=== PATIENT | female | born 1960 | race Asian ===

== ENCOUNTER 2017-09-11 07:54 | Day surgery (SDC) | payer OTHER ==
[2017-09-11] MEDS ORDERED: fentaNYL 100 MCG/2 ML VIAL IVP ONE (07:55)
[2017-09-11] MEDS ORDERED: MIDAZOLAM 2 MG/2 ML VIAL IVP ONE (07:55)
[2017-09-11] MEDS ORDERED: LACTATED RINGERS 1,000 ML IV ONE (08:30)
[2017-09-11 10:24] VITALS: BP 108/65
== END 2017-09-11 07:55 | disposition home or self-care (01) ==
LOC: SDS 07:54
PROVIDERS: ATTEND Surgery
PROC: 0DBP8ZX Excision of Rectum, Via Natural or Artificial Opening Endoscopic, Diagnostic (ICD-10-PCS; principal; 2017-09-11 09:15)
DX: Z12.11 Encounter for screening for malignant neoplasm of colon (principal); K57.30 Diverticulosis of large intestine without perforation or abscess without bleeding; K64.8 Other hemorrhoids; K62.1 Rectal polyp; I10 Essential (primary) hypertension; E78.00 Pure hypercholesterolemia, unspecified; J45.909 Unspecified asthma, uncomplicated
CPT/HCPCS: 45380; J7120; 88305

== ENCOUNTER 2017-11-09 19:42 | Observation (INO) | payer OTHER ==
[2017-11-09] MEDS ORDERED: MORPHINE 10 MG/ML VIAL IVP STA ×2 (20:04→22:02)
[2017-11-09] MEDS ORDERED: ONDANSETRON 4 MG/2 ML VIAL IVP STA (20:04)
--- NOTE | 2017-11-09 20:07 | ED Physician Documentation ---
PD HPI ABD PAIN - Stated complaint Stated Complaint: ABD PX - Chief complaint Chief Complaint: Abd Pain - History obtained from History obtained from: Patient - History of Present Illness Timing - onset: Other (She has a history of gallstones, they were ignored for the most part. She also had a negative colonoscopy except for diverticulosis and a single polyp just 2 months ago. She developed sudden onset epigastric pain about 5 hours ago at 2:00 after eating a late lunch. She is no history of abdominal surgeries.) Review of Systems Constitutional: denies: Fever, Chills Nose: reports: Reviewed and negative Cardiac: reports: Reviewed and negative Respiratory: reports: Reviewed and negative GI: reports: Abdominal Pain, Nausea. denies: Vomiting, Constipation, Diarrhea PD PAST MEDICAL HISTORY - Past Medical History Past Medical History: Yes Cardiovascular: Hypertension, High cholesterol Respiratory: Asthma Endocrine/Autoimmune: HyPOthyroidism GI: GERD : None HEENT: None Psych: None Derm: None - Past Surgical History Past Surgical History: Yes General: Colonoscopy - Present Medications Home Medications: Ambulatory Orders Medication Instructions Recorded Confirmed Albuterol Sulfate [Proair Hfa 1 - 2 puffs INH Q4H PRN 09/11/17 09/11/17 Inhaler] Carvedilol 6.25 mg PO 09/11/17 Levothyroxine Sodium [Synthroid] 25 mcg PO 09/11/17 amLODIPine [Norvasc] 10 mg PO DAILY 09/11/17 09/11/17 Atorvastatin [Lipitor] 10 mg PO DAILY 11/09/17 11/09/17 metFORMIN [Glucophage] 500 mg PO DAILY 11/09/17 11/09/17 - Allergies Allergies/Adverse Reactions: Allergies Allergy/AdvReac Type Severity Reaction Status Date / Time No Known Drug Allergies Allergy Verified 11/09/17 19:53 - Social History Does the pt smoke?: No Smoking Status: Never smoker Does the pt drink ETOH?: No Does the pt have substance abuse?: No - Family History Family history: reports: Non contributory - Immunizations Immunizations are current?: No Immunizations: TDAP >10years/unknown - POLST Patient has POLST: No PD ED PE NORMAL - Vitals Vital signs reviewed: Yes - General General: Alert and oriented X 3, No acute distress - HEENT HEENT: PERRL, EOMI - Neck Neck: Supple, no meningeal sign, No bony TTP - Cardiac Cardiac: RRR, No murmur - Respiratory Respiratory: No respiratory distress, Clear bilaterally - Abdomen Abdomen: Other (TTP RUQ with equivocal murphys) - Back Back: No CVA TTP, No spinal TTP - Derm Derm: Normal color, Warm and dry - Extremities Extremities: Other (trace pitting edema) - Neuro Neuro: Alert and oriented X 3, Normal speech Results - Vitals Vitals: Vital Signs - 24 hr 11/09/17 11/09/17 11/09/17 19:48 20:22 20:51 Temperature 36.3 C L Heart Rate 110 H 97 87 Respiratory 16 12 15 Rate Blood Pressure 142/83 H 152/92 H 143/89 H O2 Saturation 99 99 100 11/09/17 21:22 Temperature Heart Rate 104 H Respiratory 13 Rate Blood Pressure 136/77 H O2 Saturation 97 Oxygen O2 Source Room air - EKG (time done) 2008 Rate: Rate (enter#) (101) Rhythm: Sinus tachycardia [place]: Normal Intervals: Normal [place] QRS: Normal Ischemia: Normal ST segments Computer interpretation: Agree with computer - Labs Labs: Laboratory Tests 11/09/17 11/09/17 11/09/17 20:13 20:13 20:13 WBC 12.1 H RBC 6.20 H Hgb 12.2 Hct 39.6 MCV 64.0 L MCH 19.7 L MCHC 30.7 L RDW 15.7 H Plt Count 379 MPV 7.3 L Neut # (Auto) 9.4 H Lymph # (Auto) 2.2 [place] # (Auto) 0.4 Eos # (Auto) 0.0 Baso # (Auto) 0.1 Absolute Nucleated RBC 0.00 Nucleated RBC % 0.0 Manual Slide Review Indicated WBC Morphology NORMAL APPEARANCE Platelet Estimate NORMAL (130-450,000) Platelet Morphology NORMAL APPEARANCE RBC Morph Micro Appear 3+ MICROCYTOSIS Sodium 136 Potassium 3.6 Chloride 103 Carbon Dioxide 27 Anion Gap 6.0 BUN 10 Creatinine 0.6 Estimated GFR (MDRD) 103 Glucose 134 H Calcium 9.1 Total Bilirubin 0.5 AST 28 ALT 23 Alkaline Phosphatase 69 Troponin I < 0.04 Total Protein 8.4 H Albumin 4.3 Globulin 4.1 Albumin/Globulin Ratio 1.0 Lipase 25 - Rads (name of study) Abd Sono Radiology: EMP read contemporaneously (Large nonmobile gallstone in the gallbladder neck with positive sonographic Gould sign mild wall thickening, possible cholecystitis. Mild extrahepatic biliary ductal dilatation with the CBD of 13 mm.) PD MEDICAL DECISION MAKING - ED course ED course: 57-year-old woman with epigastric pain consistent with a biliary origin on history and physical, confirmed with ultrasound showing large stone in the neck. There is no biochemical evidence of cholestasis. I initially spoke with the on-call surgeon around 9:00 who wanted me to call him back around 10 if she was still in pain, which she was, although mild. She was still mildly tender at the time. Dr. Oren Shahid will admit her for further evaluation and treatment, likely cholecystectomy. - Sepsis Event Vital Signs: Vital Signs - 24 hr 11/09/17 11/09/17 11/09/17 19:48 20:22 20:51 Temperature 36.3 C L Heart Rate 110 H 97 87 Respiratory 16 12 15 Rate Blood Pressure 142/83 H 152/92 H 143/89 H O2 Saturation 99 99 100 11/09/17 21:22 Temperature Heart Rate 104 H Respiratory 13 Rate Blood Pressure 136/77 H O2 Saturation 97 Oxygen O2 Source Room air Departure - Departure Disposition: ED Place in Observation Clinical Impression: Cholecystitis Condition: Stable
[2017-11-09 20:20] LABS: BASOPHILS # (AUTO) 0.1 10^3/uL (0.0-0.1); BASOPHILS % (AUTO) 0.6 %; EOSINOPHILS % (AUTO) 0.3 %; HGB - HEMOGLOBIN 12.2 g/dL (12.0-16.0); LYMPHOCYTES # (AUTO) 2.2 10^3/uL (1.5-3.5); MEAN CORPUSCULAR HEMOGLOBIN 19.7 pg (27.0-31.0); MEAN CORPUSCULAR HGB CONC 30.7 g/dL (32.0-36.0); MEAN PLATELET VOLUME 7.3 fL (7.9-10.8); MONOCYTES # (AUTO) 0.4 10^3/uL (0.0-1.0); MONOCYTES % (AUTO) 3.4 %; NEUTROPHILS # (AUTO) 9.4 10^3/uL (1.5-6.6); NEUTROPHILS % (AUTO) 77.7 %; PLT - PLATELET COUNT 379 10^3/uL (130-450); RED CELL DISTRIBUTION WIDTH 15.7 % (12.0-15.0); WHITE BLOOD COUNT 12.1 x10^3/uL (4.8-10.8)
[2017-11-09 20:30] LABS: ALBUMIN 4.3 g/dL (3.2-5.5); BILIRUBIN,TOTAL 0.5 mg/dL (0.2-1.0); CALCIUM 9.1 mg/dL (8.5-10.3); CREATININE 0.6 mg/dL (0.4-1.0); TOTAL PROTEIN 8.4 g/dL (6.7-8.2)
[2017-11-09 20:42] LABS: PLATELET ESTIMATE, MANUAL NORMAL (130-450,000) (NORMAL); PLATELET MORPHOLOGY NORMAL APPEARANCE (NORMAL)
--- NOTE | 2017-11-09 21:41 | Ultrasound Report ---
Procedure Date: 11/09/2017 Accession Number: [id number] / [id number] Procedure: US - Abdomen Limited CPT Code: FULL RESULT: EXAM: ABDOMEN ULTRASOUND LIMITED, RUQ EXAM DATE: 11/09/2017 09:08 PM. CLINICAL HISTORY: RUQ TTP, pain. COMPARISON: None. TECHNIQUE: Real-time scanning was performed with static images obtained. FINDINGS: Liver: Normal in size and echotexture. 13.8 cm. Main portal vein flow: Hepatopetal. Gallbladder: Echogenic structure with posterior acoustic shadowing in the gallbladder neck consistent with gallstone, measuring 1.8 cm, nonmobile. Distended gallbladder. Mild gallbladder wall thickening along the hepatic surface. Positive sonographic Gould's sign. Biliary System: CBD measures 13 mm. Mild extrahepatic biliary ductal dilatation Other: None. IMPRESSION: 1. Large nonmobile gallstone in the gallbladder neck with distended gallbladder, positive sonographic Gould's sign and mild wall thickening. Acute cholecystitis possible. 2. Mild extrahepatic biliary ductal dilatation. Consider MRI pancreas/MRCP to evaluate RADIA
[2017-11-09] MEDS ORDERED: SODIUM CHLORIDE FLUSH 0.9% 10 ML SYRINGE IVP PRN (22:04)
[2017-11-09] MEDS ORDERED: HYDROmorphone 2 MG/ML VIAL IVP PRN ×2 (22:10→22:11)
[2017-11-09] MEDS: SODIUM CHLORIDE 0.9% 1,000 ML IV SCH (22:49)
[2017-11-09] MEDS: PANTOPRAZOLE 40 MG VIAL IVP SCH (22:49)
[2017-11-09] MEDS: cefOXitin 1 GM in SODIUM CHLORIDE 0.9% MINIBAG 100 ML IV SCH (23:04)
--- NOTE | 2017-11-10 00:47 | CONSULTATION NOTE ---
DATE OF SERVICE: 11/09/2017 DATE OF ADMISSION: 11/09/2017 [employer] PHYSICIAN: Sagrario Schwab MD REFERRING PHYSICIAN: Dr. Oren Shahid, General Surgery. REASON FOR REFERRAL: Management of medical problems in a patient about to have a cholecystectomy. HISTORY OF PRESENT ILLNESS: The patient is a 57-year-old Afghan female who has diabetes, hypertension, and asthma. She states that she had an attack of right upper quadrant pain in April 2017. It lasted most of the day, but as it went into the evening it went away, and she never mentioned it to her physician. Yesterday at noon, she had the same right upper quadrant pain she had last April. As the day went on, the pain continued to wax and wane in a colicky fashion. Occasionally radiated to the epigastrium or the right flank. It was very severely cramping and associated with nausea. As the day went on, the color of her stool changed. It went from dark stool to the color of "yellow baby poop." She denied having a fever but felt flushed all day long. She did not have emesis. No diarrhea. She finally came to the emergency room, where she was seen by Dr. Solomon. Dr. Solomon evaluated her and found her to have gallstones. He contacted Dr. Oren Shahid, General Surgery, who has agreed to place the patient in observation and plans on operating on her. Dr. Shahid has asked me to manage her medical problems. Diabetes was diagnosed 2 weeks ago. Her sugars have been gradually climbing, and she was put on metformin. She was told that she is not quite "diabetic yet" and that she is heading in that direction. Her blood pressure has been controlled as far as she knows, but she has been developing more and more subtle dyspnea on exertion. She has occasional edema and orthopnea. Yesterday, her legs were so swollen they looked like ripe tomatoes "getting ready to burst." The edema is not present today. She denies any history of arrhythmia, valvular heart disease, OK. She denies any chest pain. Her cardiovascular endurance is the same as it has always been. She has no renal disease. She does have a problem with asthma. It started about 4 years ago, and she uses an inhaler. She has never had to be intubated. Her inhaler is taken infrequently, at most 2 times a month. There has been no destabilization with regard to coughing, wheezing, or phlegm production. The other review of systems that was positive was that of intermittent left arm and left leg weakness. This started a few weeks ago. Initially, it was just her left arm that would feel numb from shoulder to wrist. Her left arm would feel heavy and sometimes weak. Then it would go away. Lately, she has felt like her left leg is numb, especially her foot, and it is heavy, and she feels that she is dragging it sometimes. Associated with this a visual cut defect. She feels like it is only coming out of her right eye. Half of her vision will be gone in the lateral visual field. Again, that comes and goes. It is accompanied by fleeting headaches. They are unilateral on the right side of her head. PAST MEDICAL HISTORY 1. Hypertension. 2. Hyperlipidemia. 3. Asthma and shortness of breath for 4 years. 4. Acid reflux with indigestion. 5. Hypothyroidism. 6. Dentures. 7. Type 2 diabetes mellitus, controlled, without complications, not on insulin for 2 weeks. 8. G7, P7. ALLERGIES: NO KNOWN DRUG ALLERGIES. MEDICATIONS 1. ProAir HFA inhaler 2 puffs as needed. 2. Amlodipine 10 mg daily. 3. Atorvastatin 40 mg daily. 4. Carvedilol 6.25 mg daily. 5. Synthroid 25 mcg daily. 6. Metformin 500 mg p.o. b.i.d. a.c. with meals. SOCIAL HISTORY: She never smoked. Rarely drank. She was born in the [facility] and came to [facility] in [place] to come live with one of her uncles. She is a [place] citizen. She met her and him in 1983. He is active duty , and they have lived in [place], [facility], and the [facility]. They have been on [facility] for about 18 years. She is occupied mainly as a [id number] with 7 children and is now the proud grandmother of several grandchildren, whom she takes care of. She is a very busy lady. She is still able to take care of the household, cleaning, taking care of the grandkids , and all of her activities of daily living. FAMILY HISTORY: Father had asthma and heart disease. Mom was healthy. One sister has thyroid. Her children are healthy. REVIEW OF SYSTEMS GENERAL: She has no recent changes with weight gain or loss, hot flashes, or general constitutional changes. ENT: She wears glasses for vision but denies glaucoma or cataracts. She has dentures. She denies hearing deficit, facial dysesthesia, problems swallowing. PULMONARY: Intermittent asthma attacks. No recent exacerbation. Denies coughing, phlegm production, wheezing. No hemoptysis. CARDIAC: Dyspnea on exertion is slightly worse over the last few years. Edema is noted in her above review of systems. Denies palpitations, arrhythmia, congestive heart failure, valvular heart disease. GASTROINTESTINAL: Positive for dyspepsia, and above in history of present illness. GENITOURINARY: Recent increased urinary frequency. Several times a day now. Urine is clear. No hematuria. No flank pain. Denies dysuria but does have urgency. No vaginal discharge. No dyspareunia. No postmenopausal vaginal bleeding. JOINTS: Both of her knees get very stiff, but it has not limited her yet. No joint swelling or effusions. Denies back pain, muscle pain. HEMATOLOGIC: Denies anemia, bleeding or bruising. PSYCHIATRIC: Denies depression or anxiety. ENDOCRINOLOGIC: Denies sweating, cold or heat intolerance. Does have polyuria , no polydipsia. CENTRAL NERVOUS SYSTEM: Positive as above for the headaches, intermittent left body weakness, right visual field deficits. Denies seizures or syncope. PHYSICAL EXAMINATION VITAL SIGNS: Temperature is 37, heart rate 99, blood pressure 128/81, respirations 18. She is 100% on room air. She is 5 feet 2 inches tall and weighs 57 kg. GENERAL: She is a slender Afghan female in no acute distress with at the bedside. HEAD AND NECK: Unremarkable other than dentures and glasses. Sclerae are nonicteric. Pupils reactive. No facial asymmetry. Speech is normal. Tongue is midline. Gag is intact. NECK: Supple without goiters or bruits. LUNGS: Clear to auscultation and percussion, and she does not have any crackles , rhonchi or wheezing at this time. No increased respiratory effort. She does not have a right ventricular lift palpable. CARDIAC: Regular rate and rhythm with a PMI normally placed and a systolic murmur at the left lower sternal border. ABDOMEN: Right upper quadrant pain but no rebound or guarding. Abdomen feels mildly distended, but hypoactive bowel sounds are present. EXTREMITIES: The extremities, in spite of her complaints of severe edema yesterday, are normal. She has no clubbing, cyanosis or edema. Good foot pulses. Knees are without effusions. They do have crepitance as I flex and extend but no effusions, no knee cap ballottement. NEUROLOGIC: She is alert and oriented to person, place and time. Cranial nerves II-XII appear grossly intact. I do not see a facial droop. She is hearing well. Tongue is midline. Pupils reactive. Strength testing of the upper and lower extremities, in spite of her complaints of intermittent left body numbness, is normal. Right and left hand grasp is normal , and elevation of her legs off the bed and pushing against my hands are normal. She is at 5/ 5. Reflexes are normal. LABORATORY DATA: Her BMP shows a normal BMP other than a glucose of 134. Troponin was less than 0.04. Total protein mildly elevated at 8.4. Bili and liver enzymes are normal. CBC has a white cell count of 12.1, hemoglobin 12.2, hematocrit 39.6, MCV of 64. She has anisocytosis and microcytosis. IMAGING: Abdominal ultrasound has a large nonmobile gallstone in the gallbladder neck with distended gallbladder, positive sonographic Gould sign, and a mild wall thickening. Acute cholecystitis possible. Mild extrahepatic biliary ductal dilatation. Consider MRI pancreas, MRCP to evaluate. ASSESSMENT/PLAN 1. Acute cholecystitis presenting as right upper quadrant abdominal pain. She has an elevated white cell count and a positive gallbladder ultrasound. Liver enzymes are not elevated, and there is no evidence of pancreatitis. Plan: She has been placed in observation. Dr. Shahid is the attending of record, and I am the wig sales consultant. ATTESTATION that the patient will be in the hospital less than 96 hours. Plan is for surgery in the morning. She is n.p.o. tonight. Pain management with morphine. Dr Shahid is managing her surgical disease and its treatment. Including choice of antibiotics. 2. Preoperative cardiovascular examination has a revised cardiac index of class I. Low risk for cardiac complications. 3. Dyspnea on exertion and complains of intermittent pedal edema. Check echocardiogram. There is murmur on exam. Point of maximal impulse is normally placed. While on physical examination I do not find congestive heart failure, nor evidence of pulmonary hypertension, would want to see if she has left ventricular hypertrophy. 4. Intermittent neurological deficit, left body, with right visual field cut loss. In spite of this complaint, her physical exam is quite normal. If possible, check MRI with and without contrast in the morning before after surgery and before discharge. 5. Microcytosis. In this Afghan female, I would suspect thalassemia. 6. Deep venous thrombosis prophylaxis will be thromboembolism deterrent hose. 7. FULL CODE STATUS. 8. History of asthma. Currently, her exam is negative for any exacerbation. Continue with albuterol p.r.n. 9. Type 2 diabetes mellitus, controlled, not on insulin. No complications. Sliding scale insulin with Novolin R already ordered. Hold metformin until after surgery. Check A1c. TD: 11/09/2017 23:46 MTDD
[2017-11-10] MEDS: INSULIN REGULAR HUMAN 100 UNIT/1 ML 10 ML MDV SUBQ SCH ×4 (03:08→18:10)
[2017-11-10] MEDS: SODIUM CHLORIDE FLUSH 0.9% 10 ML SYRINGE IVP SCH ×3 (03:09→17:37)
[2017-11-10] MEDS: cefOXitin 1 GM in SODIUM CHLORIDE 0.9% MINIBAG 100 ML IV SCH ×4 (05:34→22:03)
[2017-11-10 06:06] LABS: ALBUMIN 3.7 g/dL (3.2-5.5); ALBUMIN/GLOBULIN RATIO 1.2 (1.0-2.2); BILIRUBIN,TOTAL 0.5 mg/dL (0.2-1.0); CALCIUM 8.4 mg/dL (8.5-10.3); CREATININE 0.7 mg/dL (0.4-1.0); TOTAL PROTEIN 6.8 g/dL (6.7-8.2)
[2017-11-10 06:26] LABS: BASOPHILS % (AUTO) 0.5 %; EOSINOPHILS # (AUTO) 0.1 10^3/uL (0.0-0.7); HGB - HEMOGLOBIN 10.9 g/dL (12.0-16.0); MEAN CORPUSCULAR HEMOGLOBIN 19.9 pg (27.0-31.0); MEAN CORPUSCULAR VOLUME 64.1 fL (81.0-99.0); MEAN PLATELET VOLUME 7.7 fL (7.9-10.8); MONOCYTES # (AUTO) 0.6 10^3/uL (0.0-1.0); MONOCYTES % (AUTO) 6.3 %; NEUTROPHILS # (AUTO) 6.4 10^3/uL (1.5-6.6); NEUTROPHILS % (AUTO) 63.2 %; PLT - PLATELET COUNT 316 10^3/uL (130-450); RED BLOOD COUNT 5.49 10^6/uL (4.20-5.40); RED CELL DISTRIBUTION WIDTH 15.8 % (12.0-15.0); WHITE BLOOD COUNT 10.2 x10^3/uL (4.8-10.8)
[2017-11-10 07:20] LABS: PLATELET ESTIMATE, MANUAL NORMAL (130-450,000) (NORMAL)
[2017-11-10] MEDS: SODIUM CHLORIDE 0.9% 1,000 ML IV SCH ×3 (07:44→19:11)
[2017-11-10] MEDS: PANTOPRAZOLE 40 MG VIAL IVP SCH (09:27)
[2017-11-10 09:55] LABS: % IRON SATURATION 16 % (20-50); IRON 44 ug/dL (28-170); TOTAL IRON BINDING CAPACITY 269 ug/dL (250-450); TRANSFERRIN 192 mg/dL (192-382)
[2017-11-10] MEDS ORDERED: BUPIVACAINE 0.5%-EPI 1:200000 PF 30 ML VIAL ONE (13:19)
[2017-11-10] MEDS ORDERED: IOTHALAMATE MEGLUMINE 50 ML VIAL ONE (13:19)
--- NOTE | 2017-11-10 13:24 | Ultrasound Report ---
Procedure Date: 11/10/2017 Accession Number: [id number] / [id number] Procedure: US - Carotid Doppler Complete CPT Code: FULL RESULT: EXAM: BILATERAL CAROTID AND VERTEBRAL ARTERY DUPLEX DOPPLER ULTRASOUND: EXAM DATE: 11/10/2017 01:01 PM CLINICAL HISTORY: Intermittent left body weakness numbness. COMPARISON: None. TECHNIQUE: Grayscale imaging, color Doppler, and duplex spectral Doppler were used to evaluate the carotid and vertebral arteries bilaterally. Static images were obtained. FINDINGS: No significant shadowing plaque visualized. Grayscale images show no evidence of focal significant luminal narrowing. Left distal internal carotid artery not seen. Normal antegrade flow is present in bilateral vertebral arteries. VELOCITIES: Right CCA prox: PSV 71 cm/sec CCA dist: PSV 69 cm/sec, EDV 27 cm/sec ECA: PSV 85, cm/sec BULB: 60 PSV cm/sec, EDV 19 cm/sec, ICA/CCA PSV 0.86 ICA prox: PSV 47 cm/sec, EDV 16 cm/sec, ICA/CCA PSV 0.68 ICA mid: PSV 82 cm/sec, EDV 34 cm/sec, ICA/CCA PSV 1.18 ICA dist: PSV 91 cm/sec, EDV 45 cm/sec,ICA/CCA PSV 1.3 RVA: 69 RVA flow direction antegrade Left CCA prox: PSV 90 cm/sec CCA dist: PSV 75 cm/sec, EDV 34 cm/sec ECA: PSV 133, cm/sec BULB: PSV 71 cm/sec, EDV 31 cm/sec, ICA/CCA PSV 0.94 ICA prox: PSV 69 cm/sec, EDV 29 cm/sec, ICA/CCA PSV 0.92 ICA mid: PSV 91 cm/sec, EDV 35 cm/sec, ICA/CCA PSV 1.12 ICA dist: Not seen. LVA: 45 LVA flow direction antegrade ICA diameter stenosis: Right: <50% by velocity and <70% by NASCET criteria. Left: <50% by velocity and <70% by NASCET criteria. IMPRESSION: 1. No significant bilateral carotid artery plaquing. 2. In the right carotid artery there are no elevated carotid artery velocities to suggest hemodynamically significant stenosis. 3. In the left carotid artery there are no elevated carotid artery velocities to suggest hemodynamically significant stenosis. 4. Normal antegrade flow is present in bilateral vertebral arteries. General Recommendations: Stenosis =50% ICA - Follow-up ultrasound 6-12 months Stenosis <50% ICA - High Risk Patient with plaque - Follow-up ultrasound 1-2 years Normal Study but High Risk Patient - Follow-up ultrasound 3-5 years Management recommendations and diagnostic criteria are based on current IAC endorsed standards in Carotid Artery Stenosis: Grayscale and Doppler Ultrasound Diagnosis. Validated velocity measurements with angiographic measurements and velocity criteria are extrapolated from diameter data as defined by the Society of Radiologists in Ultrasound Consensus Conference Radiology 2003; 229;340-346. RADIA
[2017-11-10] MEDS ORDERED: IOTHALAMATE MEGLUMINE 50 ML VIAL IVP ONE ×2 (14:20)
[2017-11-10] MEDS ORDERED: BUPIVACAINE 0.5%-EPI 1:200000 PF 30 ML VIAL SUBQ ONE (14:21)
[2017-11-10] MEDS ORDERED: LACTATED RINGERS 1,000 ML IV ONE ×3 (15:15→15:36)
[2017-11-10] MEDS ORDERED: MIDAZOLAM 2 MG/2 ML VIAL IVP ONE (15:50)
[2017-11-10] MEDS ORDERED: DEXAMETHASONE 4 MG/ML VIAL IVP ONE (15:50)
[2017-11-10] MEDS ORDERED: OXYTOCIN 10 UNIT/ML VIAL IV ONE (15:50)
[2017-11-10] MEDS ORDERED: GLYCOPYRROLATE 1 MG/5 ML VIAL IVP ONE (15:50)
[2017-11-10] MEDS ORDERED: NEOSTIGMINE 1 MG/1 ML 10 ML MDV IVP ONE (15:50)
[2017-11-10] MEDS ORDERED: PHENYLEPHRINE 50 MG/5 ML VIAL IV ONE (15:50)
[2017-11-10] MEDS ORDERED: PROPOFOL 200 MG/20 ML VIAL IVP ONE (15:50)
[2017-11-10] MEDS ORDERED: ONDANSETRON 4 MG/2 ML VIAL IVP ONE (15:50)
[2017-11-10] MEDS ORDERED: ROCURONIUM 50 MG/5 ML VIAL IVP ONE (15:50)
--- NOTE | 2017-11-10 16:43 | XRAY Report ---
Procedure Date: 11/10/2017 Accession Number: [id number] / [id number] Procedure: [place] - OR Cholangiogram CPT Code: FULL RESULT: EXAM: INTRAOPERATIVE CHOLANGIOGRAM EXAM DATE: 11/10/2017 04:03 PM. CLINICAL HISTORY: CHOLANGIOGRAM. COMPARISONS: None. TECHNIQUE: Please see the operative notes for details. Fluoroscopy Time: 1 minute 10 seconds. Number of Images: 2. FINDINGS IMPRESSION: A catheter has been placed into the cystic duct remnant following cholecystectomy. Cholangiography shows opacification of the bile ducts. Visualized ducts show no filling defects. Spill of contrast into the duodenum documented. RADIA
[2017-11-10] MEDS ORDERED: ALBUTEROL NEB 2.5 MG/3 ML INH PRN (17:37)
--- NOTE | 2017-11-10 17:38 | PROVIDER PROGRESS NOTE ---
Subjective - Prog Note Date Prog Note Date: 11/10/17 Prog Note Time: 17:00 - Subjective Subjective: The patient says she feels well. Her abdominal pain is relieved at this time. She denies any fevers or chills, nausea or vomiting. She is anxious to have her surgery later today. Current Medications - Current Medications Current Medications: Active Medications Generic Name Dose Route Start Last Admin Trade Name Freq PRN Reason Stop Dose Admin Hydromorphone HCl 2 mg 11/09/17 22:10 Dilaudid (Vial) IVP Q2H PRN Abdominal Pain Hydromorphone HCl 1 mg 11/09/17 22:11 Dilaudid (Vial) IVP Q2H PRN PAIN 7-10/10 Sodium Chloride 1,000 mls @ 125 mls/hr 11/09/17 23:00 11/10/17 15:36 Normal Saline 0.9% IV Not Given .Q8H KIRAN Cefoxitin Sodium 1 gm/ Sodium 100 mls @ 200 mls/hr 11/09/17 23:00 11/10/17 17 :36 Chloride IV Not Given Q6H [facility] Insulin Human Regular 1 - 9 unit 11/10/17 00:00 11/10/17 15:36 Novolin R SUBQ Not Given Q6HR [facility] Protocol Levothyroxine Sodium 25 mcg 11/11/17 07:00 Synthroid PO QDAC KIRAN Non-Formulary Medication 2 puffs 11/10/17 17:33 Albuterol Sulfate [Proair Hfa Inhaler] INH Q4H PRN Shortness of Air/Wheezing Non-Formulary Medication 10 mg 11/11/17 09:00 Amlodipine Besylate [Amlodipine Besylate] PO DAILY KIRAN Non-Formulary Medication 6.25 mg 11/10/17 21:00 Carvedilol [Carvedilol] PO QPM KIRAN Pantoprazole Sodium 40 mg 11/09/17 22:30 11/10/17 09:27 Protonix IVP 40 mg DAILY KIRAN Administration Sodium Chloride 10 ml 11/10/17 01:00 11/10/17 17:37 Normal Saline Flush 0.9% IVP 10 ml 0100,0900,1700 KIRAN Administration Sodium Chloride 10 ml 11/09/17 22:04 11/10/17 09:27 Normal Saline Flush 0.9% IVP 10 ml PRN PRN Administration NEEDED PER PROVIDER ORDERS Albuterol Sulfate [Proair Hfa Inhaler] 1 - 2 puffs INH Q4H PRN 09/11/17 Carvedilol 6.25 mg PO QPM 09/11/17 Levothyroxine Sodium [Synthroid] 25 mcg PO QDAC 09/11/17 Amlodipine Besylate [Amlodipine Besylate] 10 mg PO DAILY 11/10/17 Atorvastatin Calcium 40 mg PO QPM 11/10/17 Metformin HCl [Metformin HCl ER] 500 mg PO DAILY 11/10/17 Objective - Vital Signs/Intake & Output Reviewed Vital Signs: Yes Vital Signs: Vital Signs x48h Temp Pulse Resp BP Pulse Ox 11/10/17 17:10 99 11/10/17 17:05 100 11/10/17 17:00 99 11/10/17 16:55 99 11/10/17 16:50 100 11/10/17 16:45 100 11/10/17 16:40 100 11/10/17 16:35 100 11/10/17 16:30 100 11/10/17 12:00 36.7 C 75 17 130/71 99 Intake & Output: Intake & Output 11/07/17 11/08/17 11/09/17 11/10/17 23:59 23:59 23:59 23:59 Intake Total 100 1200.000 Balance 100 1200.000 - Objective General Appearance: positive: No acute distress, Alert Eyes Bilateral: positive: Normal inspection, PERRL, EOMI, No lid inflammation, Conjunctivae nml, No scleral icterus ENT: positive: ENT inspection nml, Pharynx nml, No signs of dehydration Neck: positive: Nml inspection, Thyroid nml, No JVD, Trachea midline. negative : Thyromegaly Respiratory: positive: Chest non-tender, No respiratory distress, Breath sounds nml. negative: Wheezes, Rales, Rhonchi Cardiovascular: positive: Regular rate & rhythm, No murmur, No gallop Abdomen: positive: No organomegaly, No distention, Tenderness, Guarding. negative: Rebound Back: positive: Nml inspection. negative: CVA tenderness (R), CVA tenderness (L ) Skin: positive: Color nml, No rash, Warm, Dry. negative: Cyanosis Extremities: positive: Non-tender, Full ROM, Nml appearance, No pedal edema Neurologic/Psychiatric: positive: Oriented x3, CN's nml (2-12), Motor nml, Sensation nml, Mood/affect nml - Lab Results Fish Bones: 11/10/17 05:33 11/10/17 05:33 Other Labs: Lab Results x24hrs 11/10/17 11/10/17 11/10/17 Range/Units 16:31 13:20 05:33 WBC (4.8-10.8) x10^3/uL RBC (4.20-5.40) 10^6/uL Hgb (12.0-16.0) g/dL Hct (37.0-47.0) % MCV (81.0-99.0) fL MCH (27.0-31.0) pg MCHC (32.0-36.0) g/dL RDW (12.0-15.0) % Plt Count (130-450) 10^3/uL MPV (7.9-10.8) fL Neut # (Auto) (1.5-6.6) 10^3/uL Lymph # (Auto) (1.5-3.5) 10^3/uL [place] # (Auto) (0.0-1.0) 10^3/uL Eos # (Auto) (0.0-0.7) 10^3/uL Baso # (Auto) (0.0-0.1) 10^3/uL Absolute Nucleated RBC x10^3/uL Nucleated RBC % /100WBC Manual Slide Review Platelet Estimate (NORMAL) RBC Morph Micro Appear (NORMAL) Sodium (135-145) mmol/L Potassium (3.5-5.0) mmol/L Chloride (101-111) mmol/L Carbon Dioxide (21-32) mmol/L Anion Gap (6-13) BUN (6-20) mg/dL Creatinine (0.4-1.0) mg/dL Estimated GFR (MDRD) (>89) Glucose (70-100) mg/dL POC Whole Bld Glucose 124 H 94 (70 - 100) mg/dL Calcium (8.5-10.3) mg/dL Iron 44 (28-170) ug/dL TIBC 269 (250-450) ug/dL % Saturation 16 L (20-50) % Transferrin 192 (192-382) mg/dL Total Bilirubin (0.2-1.0) mg/dL AST (10-42) IU/L ALT (10-60) IU/L Alkaline Phosphatase (42-121) IU/L Total Protein (6.7-8.2) g/dL Albumin (3.2-5.5) g/dL Globulin (2.1-4.2) g/dL Albumin/Globulin Ratio (1.0-2.2) TSH (0.34-5.60) uIU/mL 11/10/17 11/10/17 11/10/17 Range/Units 05:33 05:33 05:33 WBC 10.2 (4.8-10.8) x10^3/uL RBC 5.49 H (4.20-5.40) 10^6/uL Hgb 10.9 L (12.0-16.0) g/dL Hct 35.2 L (37.0-47.0) % MCV 64.1 L (81.0-99.0) fL MCH 19.9 L (27.0-31.0) pg MCHC 31.0 L (32.0-36.0) g/dL RDW 15.8 H (12.0-15.0) % Plt Count 316 (130-450) 10^3/uL MPV 7.7 L (7.9-10.8) fL Neut # (Auto) 6.4 (1.5-6.6) 10^3/uL Lymph # (Auto) 3.0 (1.5-3.5) 10^3/uL [place] # (Auto) 0.6 (0.0-1.0) 10^3/uL Eos # (Auto) 0.1 (0.0-0.7) 10^3/uL Baso # (Auto) 0.0 (0.0-0.1) 10^3/uL Absolute Nucleated RBC 0.01 x10^3/uL Nucleated RBC % 0.0 /100WBC Manual Slide Review Indicated Platelet Estimate NORMAL (130-450,000) (NORMAL) RBC Morph Micro Appear 1+ HYPOCHROMASIA (NORMAL) Sodium 139 (135-145) mmol/L Potassium 3.7 (3.5-5.0) mmol/L Chloride 107 (101-111) mmol/L Carbon Dioxide 28 (21-32) mmol/L Anion Gap 4.0 L (6-13) BUN 10 (6-20) mg/dL Creatinine 0.7 (0.4-1.0) mg/dL Estimated GFR (MDRD) 86 L (>89) Glucose 108 H (70-100) mg/dL POC Whole Bld Glucose (70 - 100) mg/dL Calcium 8.4 L (8.5-10.3) mg/dL Iron (28-170) ug/dL TIBC (250-450) ug/dL % Saturation (20-50) % Transferrin (192-382) mg/dL Total Bilirubin 0.5 (0.2-1.0) mg/dL AST 46 H (10-42) IU/L ALT 37 (10-60) IU/L Alkaline Phosphatase 65 (42-121) IU/L Total Protein 6.8 (6.7-8.2) g/dL Albumin 3.7 (3.2-5.5) g/dL Globulin 3.1 (2.1-4.2) g/dL Albumin/Globulin Ratio 1.2 (1.0-2.2) TSH 3.45 (0.34-5.60) uIU/mL 11/10/17 Range/Units 00:10 WBC (4.8-10.8) x10^3/uL RBC (4.20-5.40) 10^6/uL Hgb (12.0-16.0) g/dL Hct (37.0-47.0) % MCV (81.0-99.0) fL MCH (27.0-31.0) pg MCHC (32.0-36.0) g/dL RDW (12.0-15.0) % Plt Count (130-450) 10^3/uL MPV (7.9-10.8) fL Neut # (Auto) (1.5-6.6) 10^3/uL Lymph # (Auto) (1.5-3.5) 10^3/uL [place] # (Auto) (0.0-1.0) 10^3/uL Eos # (Auto) (0.0-0.7) 10^3/uL Baso # (Auto) (0.0-0.1) 10^3/uL Absolute Nucleated RBC x10^3/uL Nucleated RBC % /100WBC Manual Slide Review Platelet Estimate (NORMAL) RBC Morph Micro Appear (NORMAL) Sodium (135-145) mmol/L Potassium (3.5-5.0) mmol/L Chloride (101-111) mmol/L Carbon Dioxide (21-32) mmol/L Anion Gap (6-13) BUN (6-20) mg/dL Creatinine (0.4-1.0) mg/dL Estimated GFR (MDRD) (>89) Glucose (70-100) mg/dL POC Whole Bld Glucose 103 H (70 - 100) mg/dL Calcium (8.5-10.3) mg/dL Iron (28-170) ug/dL TIBC (250-450) ug/dL % Saturation (20-50) % Transferrin (192-382) mg/dL Total Bilirubin (0.2-1.0) mg/dL AST (10-42) IU/L ALT (10-60) IU/L Alkaline Phosphatase (42-121) IU/L Total Protein (6.7-8.2) g/dL Albumin (3.2-5.5) g/dL Globulin (2.1-4.2) g/dL Albumin/Globulin Ratio (1.0-2.2) TSH (0.34-5.60) uIU/mL - Diagnostic Imaging Diagnostic Imaging Results: positive: Final report reviewed Diagnostic Imaging Comments: EXAM: ABDOMEN ULTRASOUND LIMITED, RUQ EXAM DATE: 11/09/2017 09:08 PM. CLINICAL HISTORY: RUQ TTP, pain. COMPARISON: None. TECHNIQUE: Real-time scanning was performed with static images obtained. FINDINGS: Liver: Normal in size and echotexture. 13.8 cm. Main portal vein flow: Hepatopetal. Gallbladder: Echogenic structure with posterior acoustic shadowing in the gallbladder neck consistent with gallstone, measuring 1.8 cm, nonmobile. Distended gallbladder. Mild gallbladder wall thickening along the hepatic surface. Positive sonographic Gould's sign. Biliary System: CBD measures 13 mm. Mild extrahepatic biliary ductal dilatation Other: None. IMPRESSION: 1. Large nonmobile gallstone in the gallbladder neck with distended gallbladder, positive sonographic Gould's sign and mild wall thickening. Acute cholecystitis possible. 2. Mild extrahepatic biliary ductal dilatation. Consider MRI pancreas/MRCP to evaluate EXAM: BILATERAL CAROTID AND VERTEBRAL ARTERY DUPLEX DOPPLER ULTRASOUND: EXAM DATE: 11/10/2017 01:01 PM CLINICAL HISTORY: Intermittent left body weakness numbness. COMPARISON: None. TECHNIQUE: Grayscale imaging, color Doppler, and duplex spectral Doppler were used to evaluate the carotid and vertebral arteries bilaterally. Static images were obtained. FINDINGS: No significant shadowing plaque visualized. Grayscale images show no evidence of focal significant luminal narrowing. Left distal internal carotid artery not seen. Normal antegrade flow is present in bilateral vertebral arteries. VELOCITIES: Right CCA prox: PSV 71 cm/sec CCA dist: PSV 69 cm/sec, EDV 27 cm/sec ECA: PSV 85, cm/sec BULB: 60 PSV cm/sec, EDV 19 cm/sec, ICA/CCA PSV 0.86 ICA prox: PSV 47 cm/sec, EDV 16 cm/sec, ICA/CCA PSV 0.68 ICA mid: PSV 82 cm/sec, EDV 34 cm/sec, ICA/CCA PSV 1.18 ICA dist: PSV 91 cm/sec, EDV 45 cm/sec,ICA/CCA PSV 1.3 RVA: 69 RVA flow direction antegrade Left CCA prox: PSV 90 cm/sec CCA dist: PSV 75 cm/sec, EDV 34 cm/sec ECA: PSV 133, cm/sec BULB: PSV 71 cm/sec, EDV 31 cm/sec, ICA/CCA PSV 0.94 ICA prox: PSV 69 cm/sec, EDV 29 cm/sec, ICA/CCA PSV 0.92 ICA mid: PSV 91 cm/sec, EDV 35 cm/sec, ICA/CCA PSV 1.12 ICA dist: Not seen. LVA: 45 LVA flow direction antegrade ICA diameter stenosis: Right: <50% by velocity and <70% by NASCET criteria. Left: <50% by velocity and <70% by NASCET criteria. IMPRESSION: 1. No significant bilateral carotid artery plaquing. 2. In the right carotid artery there are no elevated carotid artery velocities to suggest hemodynamically significant stenosis. 3. In the left carotid artery there are no elevated carotid artery velocities to suggest hemodynamically significant stenosis. 4. Normal antegrade flow is present in bilateral vertebral arteries. EXAM: INTRAOPERATIVE CHOLANGIOGRAM EXAM DATE: 11/10/2017 04:03 PM. CLINICAL HISTORY: CHOLANGIOGRAM. COMPARISONS: None. TECHNIQUE: Please see the operative notes for details. Fluoroscopy Time: 1 minute 10 seconds. Number of Images: 2. FINDINGS IMPRESSION: A catheter has been placed into the cystic duct remnant following cholecystectomy. Cholangiography shows opacification of the bile ducts. Visualized ducts show no filling defects. Spill of contrast into the duodenum documented. ABX Reporting Has patient been on IV antibiotics over the past 48 hours?: Yes Assessment/Plan - Problem List (1) Acute cholecystitis Impression: The patient underwent cholecystectomy with Dr. Saw Shahid this afternoon. According to Dr. Shahid there were no complications. (2) Hypertension Impression: The patient has a history of hypertension and takes carvedilol and amlodipine at home. An echocardiogram done yesterday was remarkably benign and showed an ejection fraction of 60-65% with no cardiac pathology noted. Continue Coreg and Norvasc. (3) Type 2 diabetes mellitus Impression: The patient has a history of type 2 diabetes mellitus and takes only metformin at home. We will not restart her metformin while she is in the hospital because of concerns with metabolic acidosis and will cover her with sliding scale insulin. I have ordered hemoglobin A1c to check on the effectiveness of the patient's treatment of her diabetes. (4) Hypothyroidism Impression: The patient has a history of hypothyroidism and takes levothyroxine at home. Her TSH this morning was 3.45. Continue present Levothyroxine dosing while here in the hospital. (5) Hyperlipidemia Impression: Presumably well-managed, patient takes atorvastatin at home. We will continue this while she is in the hospital.
[2017-11-10] MEDS ORDERED: ONDANSETRON 4 MG/2 ML VIAL IVP PRN (20:51)
[2017-11-10] MEDS ORDERED: CARVEDILOL 12.5 MG TABLET PO SCH (21:00)
[2017-11-10] MEDS ORDERED: SODIUM CHLORIDE FLUSH 0.9% 10 ML SYRINGE ONE (21:07)
[2017-11-11] MEDS: INSULIN REGULAR HUMAN 100 UNIT/1 ML 10 ML MDV SUBQ SCH ×2 (00:48→06:19)
[2017-11-11] MEDS: SODIUM CHLORIDE FLUSH 0.9% 10 ML SYRINGE IVP SCH ×2 (00:50→08:54)
[2017-11-11] MEDS: SODIUM CHLORIDE 0.9% 1,000 ML IV SCH (03:18)
[2017-11-11] MEDS: HYDROcod/ACETAM 5/325 MG TABLET PO PRN ×3 (03:34→13:28)
[2017-11-11] MEDS: cefOXitin 1 GM in SODIUM CHLORIDE 0.9% MINIBAG 100 ML IV SCH ×2 (05:18→10:57)
[2017-11-11 07:00] LABS: HGB - HEMOGLOBIN 10.2 g/dL (12.0-16.0); MEAN CORPUSCULAR HEMOGLOBIN 19.9 pg (27.0-31.0); MEAN CORPUSCULAR HGB CONC 30.8 g/dL (32.0-36.0); MEAN CORPUSCULAR VOLUME 64.8 fL (81.0-99.0); MEAN PLATELET VOLUME 7.6 fL (7.9-10.8); RED BLOOD COUNT 5.14 10^6/uL (4.20-5.40); RED CELL DISTRIBUTION WIDTH 15.8 % (12.0-15.0); WHITE BLOOD COUNT 10.5 x10^3/uL (4.8-10.8)
[2017-11-11] MEDS ORDERED: LEVOTHYROXINE 25 MCG TABLET PO SCH (07:00)
[2017-11-11 07:06] LABS: CALCIUM 8.3 mg/dL (8.5-10.3); CREATININE 0.8 mg/dL (0.4-1.0)
[2017-11-11 08:09] LABS: HB2 TOTAL 10.8 g/dL; HEMOGLOBIN A1C 0.48 g/dL; HEMOGLOBIN A1C % 6.2 % (4.6-6.2)
[2017-11-11] MEDS: INSULIN ASPART 300 UNIT/3 ML PEN SUBQ SCH ×2 (08:41→13:30)
[2017-11-11] MEDS: PANTOPRAZOLE 40 MG VIAL IVP SCH (08:51)
[2017-11-11] MEDS ORDERED: amLODIPine 5 MG TABLET PO SCH (09:00)
--- NOTE | 2017-11-11 12:09 | PROVIDER PROGRESS NOTE ---
Subjective - Prog Note Date Prog Note Date: 11/11/17 Prog Note Time: 12:05 - Subjective Pt reports feeling: Improved Subjective: The pt says her abdomen is "sore", but otherwise she feels well. She is eating and passing gas. She denies any fevers or chills. Current Medications - Current Medications Current Medications: Active Medications Generic Name Dose Route Start Last Admin Trade Name Freq PRN Reason Stop Dose Admin Hydrocodone Bitart/Acetaminophen 1 tab 11/10/17 20:51 11/11/17 08:51 [place] 5/325 PO 1 tab Q4HR PRN Administration PAIN Albuterol 2.5 mg 11/10/17 17:37 INH Q4H PRN Shortness of Air/Wheezing Amlodipine Besylate 10 mg 11/11/17 09:00 11/11/17 08:51 Norvasc PO 10 mg DAILY KIRAN Administration Carvedilol 6.25 mg 11/10/17 21:00 11/10/17 21:00 Coreg PO 6.25 mg QPM KIRAN Administration Hydromorphone HCl 2 mg 11/09/17 22:10 11/10/17 19:11 Dilaudid (Vial) IVP 2 mg Q2H PRN Administration Abdominal Pain Hydromorphone HCl 1 mg 11/09/17 22:11 Dilaudid (Vial) IVP Q2H PRN PAIN 7-10/10 Sodium Chloride 1,000 mls @ 125 mls/hr 11/09/17 23:00 11/11/17 03:18 Normal Saline 0.9% IV 125 mls/hr .Q8H KIRAN Administration Cefoxitin Sodium 1 gm/ Sodium 100 mls @ 200 mls/hr 11/09/17 23:00 11/11/17 10 :57 Chloride IV 200 mls/hr Q6H KIRAN Administration Insulin Aspart 1 - 9 unit 11/11/17 08:00 11/11/17 08:41 Novolog SUBQ Not Given 0800,1200,1700,2100 KIRAN Protocol Levothyroxine Sodium 25 mcg 11/11/17 07:00 11/11/17 06:20 Synthroid PO 25 mcg QDAC KIRAN Administration Ondansetron HCl 4 mg 11/10/17 20:51 11/10/17 20:58 Zofran Inj IVP 4 mg Q6HR PRN Administration Nausea / Vomiting Pantoprazole Sodium 40 mg 11/09/17 22:30 11/11/17 08:51 Protonix IVP 40 mg DAILY KIRAN Administration Sodium Chloride 10 ml 11/10/17 01:00 11/11/17 08:54 Normal Saline Flush 0.9% IVP Not Given 0100,0900,1700 KIRAN Sodium Chloride 10 ml 11/09/17 22:04 11/10/17 09:27 Normal Saline Flush 0.9% IVP 10 ml PRN PRN Administration NEEDED PER PROVIDER ORDERS Albuterol Sulfate [Proair Hfa Inhaler] 1 - 2 puffs INH Q4H PRN 09/11/17 Carvedilol 6.25 mg PO QPM 09/11/17 Levothyroxine Sodium [Synthroid] 25 mcg PO QDAC 09/11/17 Amlodipine Besylate [Amlodipine Besylate] 10 mg PO DAILY 11/10/17 Atorvastatin Calcium 40 mg PO QPM 11/10/17 Metformin HCl [Metformin HCl ER] 500 mg PO DAILY 11/10/17 Objective - Vital Signs/Intake & Output Reviewed Vital Signs: Yes Vital Signs: Vital Signs x48h Temp Pulse Pulse Resp BP Pulse Ox 11/11/17 11:15 71 16 11/11/17 07:59 36.7 C 69 16 135/64 H 100 11/11/17 05:00 36.9 C 74 16 116/67 97 Intake & Output: Intake & Output 11/08/17 11/09/17 11/10/17 11/11/17 23:59 23:59 23:59 23:59 Intake Total 100 2300.000 1440 Balance 100 2300.000 1440 - Objective General Appearance: positive: No acute distress, Alert Eyes Bilateral: positive: Normal inspection, PERRL, EOMI, No lid inflammation, Conjunctivae nml, No scleral icterus ENT: positive: ENT inspection nml, Pharynx nml, No signs of dehydration Neck: positive: Nml inspection, Thyroid nml, No JVD, Trachea midline. negative : Thyromegaly Respiratory: positive: Chest non-tender, No respiratory distress, Breath sounds nml. negative: Wheezes, Rales, Rhonchi Cardiovascular: positive: Regular rate & rhythm, No murmur, No gallop Abdomen: positive: Non-tender, No organomegaly, Nml bowel sounds, No distention. negative: Guarding, Rebound Back: positive: Nml inspection. negative: CVA tenderness (R), CVA tenderness (L ) Skin: positive: Color nml, No rash, Warm, Dry. negative: Cyanosis Extremities: positive: Non-tender, Full ROM, Nml appearance, No pedal edema Neurologic/Psychiatric: positive: Oriented x3, CN's nml (2-12), Motor nml, Sensation nml, Mood/affect nml - Lab Results Fish Bones: 11/11/17 06:25 11/11/17 06:25 Other Labs: Lab Results x24hrs 11/11/17 11/11/17 11/11/17 Range/Units 11:53 06:25 06:25 WBC (4.8-10.8) x10^3/uL RBC (4.20-5.40) 10^6/uL Hgb (12.0-16.0) g/dL Hct (37.0-47.0) % MCV (81.0-99.0) fL MCH (27.0-31.0) pg MCHC (32.0-36.0) g/dL RDW (12.0-15.0) % Plt Count (130-450) 10^3/uL MPV (7.9-10.8) fL Sodium 138 (135-145) mmol/L Potassium 3.8 (3.5-5.0) mmol/L Chloride 108 (101-111) mmol/L Carbon Dioxide 26 (21-32) mmol/L Anion Gap 4.0 L (6-13) BUN 8 (6-20) mg/dL Creatinine 0.8 (0.4-1.0) mg/dL Estimated GFR (MDRD) 74 L (>89) Glucose 103 H (70-100) mg/dL POC Whole Bld Glucose 113 H (70 - 100) mg/dL Glycated Hemoglobin 6.2 (4.6-6.2) % Estim Average Glucose 131 H (70-100) Calcium 8.3 L (8.5-10.3) mg/dL 11/11/17 11/11/17 11/11/17 Range/Units 06:25 06:18 00:03 WBC 10.5 (4.8-10.8) x10^3/uL RBC 5.14 (4.20-5.40) 10^6/uL Hgb 10.2 L (12.0-16.0) g/dL Hct 33.3 L (37.0-47.0) % MCV 64.8 L (81.0-99.0) fL MCH 19.9 L (27.0-31.0) pg MCHC 30.8 L (32.0-36.0) g/dL RDW 15.8 H (12.0-15.0) % Plt Count 337 (130-450) 10^3/uL MPV 7.6 L (7.9-10.8) fL Sodium (135-145) mmol/L Potassium (3.5-5.0) mmol/L Chloride (101-111) mmol/L Carbon Dioxide (21-32) mmol/L Anion Gap (6-13) BUN (6-20) mg/dL Creatinine (0.4-1.0) mg/dL Estimated GFR (MDRD) (>89) Glucose (70-100) mg/dL POC Whole Bld Glucose 102 H 181 H (70 - 100) mg/dL Glycated Hemoglobin (4.6-6.2) % Estim Average Glucose (70-100) Calcium (8.5-10.3) mg/dL 11/10/17 11/10/17 11/10/17 Range/Units 17:41 16:31 13:20 WBC (4.8-10.8) x10^3/uL RBC (4.20-5.40) 10^6/uL Hgb (12.0-16.0) g/dL Hct (37.0-47.0) % MCV (81.0-99.0) fL MCH (27.0-31.0) pg MCHC (32.0-36.0) g/dL RDW (12.0-15.0) % Plt Count (130-450) 10^3/uL MPV (7.9-10.8) fL Sodium (135-145) mmol/L Potassium (3.5-5.0) mmol/L Chloride (101-111) mmol/L Carbon Dioxide (21-32) mmol/L Anion Gap (6-13) BUN (6-20) mg/dL Creatinine (0.4-1.0) mg/dL Estimated GFR (MDRD) (>89) Glucose (70-100) mg/dL POC Whole Bld Glucose 129 H 124 H 94 (70 - 100) mg/dL Glycated Hemoglobin (4.6-6.2) % Estim Average Glucose (70-100) Calcium (8.5-10.3) mg/dL - Diagnostic Imaging Diagnostic Imaging Results: positive: Final report reviewed Diagnostic Imaging Comments: EXAM: ABDOMEN ULTRASOUND LIMITED, RUQ EXAM DATE: 11/09/2017 09:08 PM. CLINICAL HISTORY: RUQ TTP, pain. COMPARISON: None. TECHNIQUE: Real-time scanning was performed with static images obtained. FINDINGS: Liver: Normal in size and echotexture. 13.8 cm. Main portal vein flow: Hepatopetal. Gallbladder: Echogenic structure with posterior acoustic shadowing in the gallbladder neck consistent with gallstone, measuring 1.8 cm, nonmobile. Distended gallbladder. Mild gallbladder wall thickening along the hepatic surface. Positive sonographic Gould's sign. Biliary System: CBD measures 13 mm. Mild extrahepatic biliary ductal dilatation Other: None. IMPRESSION: 1. Large nonmobile gallstone in the gallbladder neck with distended gallbladder, positive sonographic Gould's sign and mild wall thickening. Acute cholecystitis possible. 2. Mild extrahepatic biliary ductal dilatation. Consider MRI pancreas/MRCP to evaluate EXAM: BILATERAL CAROTID AND VERTEBRAL ARTERY DUPLEX DOPPLER ULTRASOUND: EXAM DATE: 11/10/2017 01:01 PM CLINICAL HISTORY: Intermittent left body weakness numbness. COMPARISON: None. TECHNIQUE: Grayscale imaging, color Doppler, and duplex spectral Doppler were used to evaluate the carotid and vertebral arteries bilaterally. Static images were obtained. FINDINGS: No significant shadowing plaque visualized. Grayscale images show no evidence of focal significant luminal narrowing. Left distal internal carotid artery not seen. Normal antegrade flow is present in bilateral vertebral arteries. VELOCITIES: Right CCA prox: PSV 71 cm/sec CCA dist: PSV 69 cm/sec, EDV 27 cm/sec ECA: PSV 85, cm/sec BULB: 60 PSV cm/sec, EDV 19 cm/sec, ICA/CCA PSV 0.86 ICA prox: PSV 47 cm/sec, EDV 16 cm/sec, ICA/CCA PSV 0.68 ICA mid: PSV 82 cm/sec, EDV 34 cm/sec, ICA/CCA PSV 1.18 ICA dist: PSV 91 cm/sec, EDV 45 cm/sec,ICA/CCA PSV 1.3 RVA: 69 RVA flow direction antegrade Left CCA prox: PSV 90 cm/sec CCA dist: PSV 75 cm/sec, EDV 34 cm/sec ECA: PSV 133, cm/sec BULB: PSV 71 cm/sec, EDV 31 cm/sec, ICA/CCA PSV 0.94 ICA prox: PSV 69 cm/sec, EDV 29 cm/sec, ICA/CCA PSV 0.92 ICA mid: PSV 91 cm/sec, EDV 35 cm/sec, ICA/CCA PSV 1.12 ICA dist: Not seen. LVA: 45 LVA flow direction antegrade ICA diameter stenosis: Right: <50% by velocity and <70% by NASCET criteria. Left: <50% by velocity and <70% by NASCET criteria. IMPRESSION: 1. No significant bilateral carotid artery plaquing. 2. In the right carotid artery there are no elevated carotid artery velocities to suggest hemodynamically significant stenosis. 3. In the left carotid artery there are no elevated carotid artery velocities to suggest hemodynamically significant stenosis. 4. Normal antegrade flow is present in bilateral vertebral arteries. EXAM: INTRAOPERATIVE CHOLANGIOGRAM EXAM DATE: 11/10/2017 04:03 PM. CLINICAL HISTORY: CHOLANGIOGRAM. COMPARISONS: None. TECHNIQUE: Please see the operative notes for details. Fluoroscopy Time: 1 minute 10 seconds. Number of Images: 2. FINDINGS IMPRESSION: A catheter has been placed into the cystic duct remnant following cholecystectomy. Cholangiography shows opacification of the bile ducts. Visualized ducts show no filling defects. Spill of contrast into the duodenum documented. ABX Reporting Has patient been on IV antibiotics over the past 48 hours?: Yes Assessment/Plan - Problem List (1) Acute cholecystitis Impression: The patient underwent cholecystectomy with Dr. Saw Shahid yesterday. According to Dr. Shahid there were no complications. She is eating and passing gas. She will be discharged today. (2) Hypertension Impression: The patient has a history of hypertension and takes carvedilol and amlodipine at home. An echocardiogram done at admission was remarkably benign and showed an ejection fraction of 60-65% with no cardiac pathology noted. Continue Coreg and Norvasc. (3) Type 2 diabetes mellitus Impression: The patient takes only metformin at home and while here I checked her hemoglobin A1c which was 6.2, indicating good compliance. Recommend restart her on metformin on discharge. (4) Hypothyroidism Impression: The patient has a history of hypothyroidism and takes levothyroxine at home. Her TSH at admission was 3.45. Continue present Levothyroxine dosing while here in the hospital. (5) Hyperlipidemia Impression: The patient has a history of hyperlipidemia, presumably well-managed, and takes atorvastatin at home. We continued this while she was in the hospital, and recommended that she restart this at home.
--- NOTE | 2017-11-11 12:16 | DISCHARGE SUMMARY ---
"Discharge Summary Admit Date: 11/09/17 Discharge Date: 11/11/17 Discharging Provider: Sd Primary Care Provider: Alvino Miller Code Status: Attempt Resuscitation Condition at Discharge: Good Discharge Disposition: 01 Home, Self Care - DIAGNOSES Admission Diagnoses: Biliary colic/acute cholecystitis Discharge Diagnoses with Status of Each Condition: Gallbladder has been removed. - HPI History of Present Illness: Very pleasant 57 year old female with known gallstones and they finally became symptomatic resulting in pain necessitating a ED visit. Dr. Oren Shahid consulted and laparoscopic cholecystetomy with IOC performed by Dr. Oren Shahid yesterday. Patient has done well postoperatively. Concommitent workup for dysesthesia of arms ongoing. - CONSULTS | PROCEDURES Consultations: Dr. Oren Shahid Procedures: Laparoscopic cholecystectomy with IOC by Dr. Oren Shahid 11/10/17 - HOSPITAL COURSE Hospital Course: Uncomplicated. - ALLERGIES Allergies/Adverse Reactions: Allergies Allergy/AdvReac Type Severity Reaction Status Date / Time No Known Drug Allergies Allergy Verified 11/09/17 19:53 - MEDICATIONS Home Medications: Ambulatory Orders Medication Instructions Recorded Confirmed Albuterol Sulfate [Proair Hfa 1 - 2 puffs INH Q4H PRN 09/11/17 11/10/17 Inhaler] Carvedilol 6.25 mg PO QPM 09/11/17 11/10/17 Levothyroxine Sodium [Synthroid] 25 mcg PO QDAC 09/11/17 11/10/17 Amlodipine Besylate [Amlodipine 10 mg PO DAILY 11/10/17 11/10/17 Besylate] Atorvastatin Calcium 40 mg PO QPM 11/10/17 11/10/17 Metformin HCl [Metformin HCl ER] 500 mg PO DAILY 11/10/17 11/10/17 - PHYSICAL EXAM AT DISCHARGE General Appearance: positive: No acute distress Eyes Bilateral: positive: No lid inflammation, Conjunctivae nml, No scleral icterus ENT: positive: No signs of dehydration Neck: positive: Trachea midline Respiratory: positive: Chest non-tender, No respiratory distress, Breath sounds nml Cardiovascular: positive: Regular rate & rhythm Abdomen: positive: Non-tender Skin: positive: Color nml Extremities: positive: Non-tender, Nml appearance Neurologic/Psychiatric: positive: Oriented x3 - LABS Result Diagrams: 11/11/17 06:25 11/11/17 06:25 - FOLLOW UP Follow Up: Dr. Oren Shahid in 7-10 days. Call with surgical questions/concerns. Call for temperature greater than 101 degrees Farenheit or persistent nausea or vomiting. - TIME SPENT Time Spent in Discharge (Minutes): 40"
--- NOTE | 2017-11-11 12:26 | Discharge Plan ---
Discharge Plan Disposition: 01 Home, Self Care Condition: Good Prescriptions: HYDROcod/ACETAM 325 [Warren 5/325] 1 tab PO Q4HR PRN #15 tablet PRN Reason: Pain Diet: Regular Activity Restrictions: No lifting >15 pounds for 6 weeks Shower Restrictions: No Driving Restrictions: Yes (Until not taking pain meds.) Weight Bearing: Full Weight Additional Instructions or Follow Up instructions: Okay to shower, hot tub, swim. Okay for general diet. No Smoking: If you smoke, Please STOP! Call for help. Follow-up with: Alvino Miller ARNP [Primary Care Provider] - Oren Shahid MD [Provider Admit Priv/Credential] -
[2017-11-11 14:21] VITALS: BP 137/63
--- NOTE | 2017-11-12 08:48 | OPERATIVE REPORT ---
DATE OF SERVICE: Physician: Oren Shahid MD Date of surgery 11/10/2017 PREOPERATIVE DIAGNOSES 1. Acute cholecystitis. 2. Dilated common bile duct. POSTOPERATIVE DIAGNOSES 1. Acute cholecystitis. 2. Dilated common bile duct. PROCEDURE PERFORMED: Laparoscopic cholecystectomy with intraoperative cholangiogram. SURGEON: Oren Shahid MD ANESTHESIA: Kristen Hebert CRNA INDICATIONS FOR PROCEDURE: Patient is a 57-year-old female who has been having intermittent upper abdominal pain. She had severe pain the day of admission. The patient's pain persisted. She had an ultrasound of the abdomen that showed a large gallstone impacted in the neck of the gallbladder with positive Gould sign. The gallbladder wall was thickened. She had an elevated white count of 12,000. FINDINGS AT SURGERY: Patient had acutely inflamed, distended, thick-walled, edematous gallbladder with a large stone impacted in the neck of the gallbladder. She had normal intraoperative cholangiogram without any filling defects, but with a dilated duct. There was flow of contrast into the duodenum. DESCRIPTION OF PROCEDURE: After informed consent was obtained, the patient was taken to the operating room and placed in supine position. General endotracheal anesthesia was administered. Patient's abdomen was then prepped and draped in usual sterile fashion. Prior to making an abdominal incision, the skin was injected with local anesthesia. An infraumbilical incision was made in the skin using a scalpel. A 5 mm Optiview trocar was then inserted through the incision, through the fascia and into the abdominal cavity under direct vision. The abdomen was then insufflated. Looking inside, no injuries were noted. Three 5 mm ports were placed in the right upper quadrant with the umbilical port switched to a 12 mm port under direct vision. Gallbladder was acutely inflamed and edematous. Gallbladder fundus was then grasped and lifted anteriorly and superiorly exposing the triangle of Calot. Peritoneum was then scored in this area allowing visualization of the cystic duct. Cystic duct/gallbladder junction was well visualized. The cystic artery was identified , isolated, clipped proximally and distally, and then divided. A Young clamp was then placed across the neck of the gallbladder. Needle was then inserted in the distal area into the Almaz pouch facing the cystic duct. A cholangiogram was then performed. This showed a dilated common bile duct without any filling defects being present. The clamp was then removed. Clips were then placed proximally and distally along the cystic duct with it then being divided. Gallbladder was then dissected off the gallbladder bed using electrocautery, placed in Endobag and removed through the umbilical port. Right upper quadrant was thoroughly irrigated until the return fluid was clear. The abdomen was then desufflated and looking at the port sites , no bleeding was noted. The umbilical fascial defect was closed using interrupted 0 Vicryl suture. Skin incisions were closed using 4-0 Monocryl subcuticular stitch. Dermabond was then applied. The patient was then awakened, extubated, and taken from the operating room in stable condition. ESTIMATED BLOOD LOSS: 25 mL. COMPLICATIONS: None. CONDITION OF THE PATIENT AT THE END OF PROCEDURE: Stable. SPECIMENS: Gallbladder and gallstones. DRAINS AND PACKS: None. CLASSIFICATION OF WOUND: Clean/contaminated. TD: 11/10/2017 16:42 MTDD
== END 2017-11-11 13:40 | disposition home or self-care (01) ==
LOC: ED 19:42 → OBS 22:04
PROVIDERS: ADMIT Surgery; ATTEND Surgery
PROC: 0FT44ZZ Resection of Gallbladder, Percutaneous Endoscopic Approach (ICD-10-PCS; principal; 2017-11-10 13:30)
DX: K80.00 Calculus of gallbladder with acute cholecystitis without obstruction (principal); E11.9 Type 2 diabetes mellitus without complications; I10 Essential (primary) hypertension; J45.909 Unspecified asthma, uncomplicated; E78.5 Hyperlipidemia, unspecified; K21.9 Gastro-esophageal reflux disease without esophagitis; R06.09 Other forms of dyspnea; R35.0 Frequency of micturition; R71.8 Other abnormality of red blood cells
CPT/HCPCS: 36415; 47562; 74300; 76705; 80048; 80053; 83036; 83540; 83690; 84443; 84466; 84484; 85025; 85027; 93005; 93306; 93880; 96365; 96366; 96375; 96376; 99284; A9270; G0378; J1170; J1815; J7120; Q9961; 96374

== ENCOUNTER 2017-12-29 13:13 | Outpatient (CLI) | payer OTHER ==
[2017-12-29] MEDS ORDERED: GADOBUTROL 7.5 MMOL/7.5 ML VIAL ONE (13:45)
[2017-12-29] MEDS ORDERED: GADOBUTROL 7.5 MMOL/7.5 ML VIAL IVP ONE ×2 (14:55)
--- NOTE | 2017-12-30 20:16 | MRI Report ---
Reason: PARESTHESIA OF SKIN Procedure Date: 12/29/2017 Accession Number: [id number] / [id number] Procedure: MRI - Angio Brain W/O (MRA) CPT Code: FULL RESULT: EXAM MRA BRAIN EXAM DATE: 12/29/2017 02:45 PM. CLINICAL HISTORY: 57-year-old with history of left-sided weakness and tingling. COMPARISON: MR neck 12/29/2017. TECHNIQUE: Multiplanar, multisequence MRA sequences of the brain were performed. Other: None. Post-processing: Multiplanar 3D MIP reconstructions. IV Contrast: None. FINDINGS: RIGHT Internal Carotid (ICA): No aneurysm, stenosis or anomaly. Middle Cerebral (MCA): No aneurysm, stenosis or anomaly. Anterior Cerebral (BRIA): No aneurysm, stenosis or anomaly. Posterior Cerebral (MATTING PRESS TENDER): No aneurysm, stenosis or anomaly. Posterior Communicating (P-COM): No aneurysm, stenosis or anomaly. Vertebral: No aneurysm, stenosis or anomaly in the visualized upper vertebral artery. LEFT Internal Carotid (ICA): No aneurysm, stenosis or anomaly. Middle Cerebral (MCA): No aneurysm, stenosis or anomaly. Anterior Cerebral (BRIA): No aneurysm, stenosis or anomaly. Posterior Cerebral (MATTING PRESS TENDER): No aneurysm, stenosis or anomaly. Posterior Communicating (P-COM): No aneurysm, stenosis or anomaly. 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 MIDLINE Anterior Communicating (A-COM): No aneurysm, stenosis or anomaly. Basilar Artery:No aneurysm, stenosis or anomaly. Other: None. IMPRESSION: 1. No large vessel occlusion. 2. 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 3. No definite aneurysm. No definite high-grade arterial stenosis. RADIA
--- NOTE | 2017-12-30 20:45 | MRI Report ---
Reason: PARESTHESIA OF SKIN Procedure Date: 12/29/2017 Accession Number: [id number] / [id number] Procedure: MRI - Angio Neck W/WO (MRA) CPT Code: FULL RESULT: EXAM: MR ANGIOGRAM NECK EXAM DATE: 12/29/2017 02:45 PM. CLINICAL HISTORY: 57-year-old with left-sided numbness and tingling COMPARISON: MRA head 12/29/2017. TECHNIQUE: Multiplanar, multisequence MRA sequences of the neck were performed. Other: None. Post-processing: Multiplanar 3D MIP reconstructions. IV Contrast: 6.5 cc Gadavist. Evaluation of arterial stenosis is based on a NASCET method of measurement. FINDINGS: RIGHT Common Carotid: Patent. No dissection or significant stenosis. Internal Carotid: Patent. No dissection or significant stenosis. External Carotid: Patent. No dissection or significant stenosis. Vertebral: Patent. No dissection or significant stenosis. LEFT Common Carotid: Patent. No dissection or significant stenosis. Internal Carotid: Patent. No dissection or significant stenosis. External Carotid: Patent. No dissection or significant stenosis. Vertebral: Patent. No dissection or significant stenosis. 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 No definite dissection, intramural hematoma, or aneurysm seen. Other: The soft tissues, bones, and lung apices are unremarkable. IMPRESSION: 1. 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 2. Otherwise the vasculature of the neck appears normal with no definite high-grade stenosis or dissection seen. RADIA
== END 2017-12-29 13:14 | disposition home or self-care (01) ==
LOC: DI 13:13
PROVIDERS: ATTEND Registered Nurse Diabetes Educator
DX: R20.2 Paresthesia of skin (principal)
CPT/HCPCS: 70544; 70549; A9585

== ENCOUNTER 2018-02-08 15:21 | Outpatient (CLI) | payer OTHER ==
[2018-02-08] MEDS ORDERED: GADOBUTROL 7.5 MMOL/7.5 ML VIAL ONE (15:36)
[2018-02-08] MEDS ORDERED: GADOBUTROL 7.5 MMOL/7.5 ML VIAL IVP ONE ×2 (15:54)
--- NOTE | 2018-02-09 13:26 | MRI Report ---
Reason: PARESTHESIA OF SKIN Procedure Date: 02/08/2018 Accession Number: [id number] / [id number] Procedure: MRI - Brain W/WO CPT Code: FULL RESULT: EXAM: MRI BRAIN WITHOUT AND WITH CONTRAST EXAM DATE: 02/08/2018 04:20 PM. CLINICAL HISTORY: 57-year-old with paresthesias of the skin. Evaluate for intracranial pathology. COMPARISON: MRA head 12/29/2017. TECHNIQUE: Multiplanar, multisequence T1-weighted and fluid-sensitive MR sequences of the brain were performed. Sequences optimized for routine evaluation. Other: None. IV Contrast: 6 cc Gadavist. FINDINGS: Brain Volume: Normal for age. Parenchyma: No acute parenchymal hemorrhage, mass, or midline shift. There is mild (at least 30) T2/FLAIR signal hyperintense lesion seen predominately involving the subcortical white matter of the frontal and parietal lobes. There is no definite I would lead projecting periventricular T2 hyperintense lesion seen. No definite T2 hyperintense lesion seen within the corpus callosum, brainstem, or cerebellum. No areas of restricted diffusion seen to suggest acute infarct. No abnormal enhancement. Ventricles/Cisterns: No hydrocephalus. No abnormal extra-axial fluid collection or hemorrhage. Cisterns appear patent. No abnormal postcontrast enhancement. Orbits: Symmetric and unremarkable. Sella Turcica: The pituitary gland, cavernous sinuses, suprasellar cistern and optic chiasm are unremarkable. IAC: Symmetric and unremarkable. Vasculature: Normal signal flow void is seen in the major arterial structures at the skull base. The dural sinuses are patent and enhance normally. Sinuses: No acute sinus disease. Bones: No focal pathologic appearing marrow signal changes. Other: None. IMPRESSION: 1. No acute intracranial pathology seen; specifically, no acute infarct, acute intracranial hemorrhage, mass, hydrocephalus, or midline shift. No abnormal postcontrast enhancement. 2. There is mild white matter changes (at least 30 foci of white matter abnormality) seen that are nonspecific. Etiologies include the gamut of white matter changes including sequela of chronic small vessel ischemic disease, sequela of prior infectious/inflammatory process, or sequela of prior toxic/metabolic process. Pattern and distribution are not entirely typical for a demyelinating process but a demyelinating process cannot be entirely excluded. RADIA
== END 2018-02-08 15:22 | disposition home or self-care (01) ==
LOC: DI 15:21
PROVIDERS: ATTEND Registered Nurse Diabetes Educator
DX: R20.2 Paresthesia of skin (principal)
CPT/HCPCS: 70553; A9585